=== PATIENT | female | born 1990 | race Caucasian/White ===

== ENCOUNTER 2024-04-09 06:05 | Day surgery (SDC) | payer OTHER ==
[~2024-04-09] VITALS: Ht 154.9 cm; Wt 98.5 kg
[~2024-04-09 06:05] MED LIST: DEXAMETHASONE SOD PHOS 4 MG/ML VIAL ONE; FAMOTIDINE 20 MG/ 2 ML VIAL ONE; HYDROCODON-ACE1 EAC8 PO; KETOROLAC TROMETHAMINE 30 MG/ML VIAL ONE; LACTATED RINGER'S 1,000 ML IV ONE; LACTATED RINGER'S 1,000 ML IV SCH; METOCLOPRAMIDE HCL 10 MG/2 ML SDV ONE; MIDAZOLAM HCL 2 MG/2 ML VIAL ONE; fentaNYL citrate 100 MCG/2 ML VIAL ONE; ondansetron HCL 4 MG/2 ML VIAL ONE; propofoL 200 MG/20 ML VIAL ONE
[2024-04-09] MEDS ORDERED: BUPIVACAINE HCL 0.25% 50 ML MDV ONE (06:36)
[2024-04-09] MEDS ORDERED: KETOROLAC TROMETHAMINE 30 MG/ML VIAL ONE (06:36)
[2024-04-09 06:40] VITALS: BP 112/75
[2024-04-09] MEDS ORDERED: LIDOCAINE HCL 1% 5 ML SDV INJ ONE (07:00)
[2024-04-09] MEDS ORDERED: TRANEXAMIC ACID 2,000 MG in SODIUM CHLORIDE 0.9% 100 ML IV SCH (07:00)
[2024-04-09] MEDS ORDERED: IBLOOD GLUCOSE TEST STRIP 1 EA TEST VI PRN ×2 (07:00→07:45)
[2024-04-09] MEDS ORDERED: CEFAZOLIN SODIUM 2 GM/20 ML SYR IV SCH (07:00)
--- NOTE | 2024-04-09 07:25 | NUR ---
VISITED DURING SPIRITUAL CARE ROUNDS. PT IN GOOD SPIRITS, SUPPORTED BY FAMILY MEMBER IN ROOM; STRONG RELATIONAL RESOURCES IN EVIDENCE. ASSISTANT PROFESSOR OF FORESTRY PROVIDED SUPPORTIVE PRESENCE, HOSPITALITY, PRAYER. PT AND ACTUARIAL SCIENCE PROFESSOR EXPRESSED GRATITUDE.
[2024-04-09] MEDS ORDERED: NALOXONE HCL 0.4 MG SYR IV PRN (07:45)
[2024-04-09] MEDS ORDERED: MORPHINE SULFATE 10 MG/ML VIAL IV PRN (07:45)
[2024-04-09] MEDS ORDERED: fentaNYL citrate 50 MCG/ML SDV IV PRN (07:45)
[2024-04-09] MEDS ORDERED: PROCHLORPERAZINE EDISYLATE 10 MG/2 ML VIAL IV PRN (07:45)
[2024-04-09] MEDS ORDERED: droPERidol 5 MG/2 ML VIAL IV PRN (07:45)
[2024-04-09] MEDS ORDERED: ondansetron HCL 4 MG/2 ML VIAL IV PRN (07:45)
[2024-04-09] MEDS ORDERED: METOCLOPRAMIDE HCL 10 MG/2 ML SDV IV PRN (07:45)
[2024-04-09] MEDS ORDERED: HYDROCODONE/ACETA 5/325 TAB PO PRN (08:45)
--- NOTE | 2024-04-09 09:38 | NUR ---
04/09/24 0938 Rena Cruz PT TO PACU SLEEPING ORAL AIRWAY IN PLACE O2 VIA MASK FOGGING NOTED IN MASK.
[2024-04-09] MEDS ORDERED: CELECOXIB200 MG PO (09:39)
[2024-04-09] MEDS ORDERED: HYDROCODON-ACE1 EA10 PO (09:39)
[2024-04-09 10:03] VITALS: BP 104/70
--- NOTE | 2024-04-09 10:17 | NUR ---
1000-PT BACK TO ROOM FROM PACU. RECEIVED REPORT FROM ROSANNA YOUNG. PT IS DROWSY. DENIES PAIN AND NAUSEA. PROVIDED PT WITH WATER AND CRACKERS. FAMILY AT BEDSIDE. NO OTHER NEEDS AT THIS TIME. CALL LIGHT WITHIN REACH.
[2024-04-09 10:57] VITALS: BP 105/69
--- NOTE | 2024-04-09 11:23 | NUR ---
1057-PT LAYING IN BED. DENIES PAIN AND NAUSEA. PT WOULD LIKE TO GO HOME. 1102-PT AMBULATES TO RESTROOM. PT STATES HEARING POPPING IN HER KNEE. STATES PAINFUL TO WALK. PT VOIDS. 1105-PT BACK TO ROOM. WOULD LIKE PAIN MEDICATION. 1111-PT RATES PAIN 5/10. PAIN MEDICATION GIVEN PER EMAR. FAMILY AT BEDSIDE. CALL LIGHT WITHIN REACH.
--- NOTE | 2024-04-09 11:42 | NUR ---
1135-WENT OVER DISCHARGE INSTRUCTIONS WITH PT. WENT OVER POSTOP MEDICATIONS. ALL QUESTIONS ANSWERED. PT STATES STILL PAINFUL BUT WANTS TO GO HOME AND LAYING ON HER COUCH. PT AMBULATES TO WHEELCHAIR AND RIDE PROVIDED TO FRONT OF HOSPITAL WHERE FAMILY WAS WAITING WITH THE CAR.
[2024-04-09] MEDS ORDERED: CELECOXIB 200 MG CAP PO SCH (17:00)
--- NOTE | 2024-04-13 06:52 | OR ---
[facility] [address], [place] [address] Signed DATE OF OPERATION: 04/09/2024 SURGEON: Joan Cruz MD PREOPERATIVE DIAGNOSIS: Medial meniscus tear, right knee. POSTOPERATIVE DIAGNOSIS: Medial meniscus tear, right knee. PROCEDURE PERFORMED: Right knee arthroscopy with partial meniscectomy. DIAMOND POLISHER: Rissa Kirkland PA-C. ANESTHESIA: General. BLOOD LOSS: Minimal. BRIEF HISTORY: Alisson is a 33-year-old female with progressive worsening of pain and instability in her knee. MRI was consistent with a posteromedial meniscus tear and she had failed nonoperative treatment. Risks and benefits of operative treatment were discussed with her and she elected to proceed. Once consent was obtained she was taken to the operating room. After adequate anesthesia she was placed on operating room table. All downside pressure points were well padded. The left leg was flexed, abducted and externally rotated on a well-padded leg rahman. The right was placed in well-padded proximal thigh leg rahman with no tourniquet. The leg was then prepped and draped in a standard sterile fashion. The portal sites were injected with 0.25% Marcaine with epinephrine. Standard inferolateral and superolateral portals were established and scope was introduced in the knee. ARTHROSCOPIC FINDINGS: Moderate synovitis was noted through the anterior and medial aspects of the knee. The patellofemoral joint was intact and aligned well. Lateral compartment was intact. The ACL and PCL were intact. The medial compartment showed no significant chondromalacia. There was a complex tear of the posteromedial meniscus. Electronically Signed By: JOAN CRUZ MD 04/13/24 0652 PATIENT NAME: ALISSON PEACOCK OPERATIVE REPORT DATE OF : [birth year] REPORT #: [id number] PHYSICIAN: JOAN CRUZ MD PCP: WALLY VALERA REPORT IS CONFIDENTIAL AND NOT TO BE RELEASED WITHOUT AUTHORIZATION [facility] [address], [place] [address] Signed DESCRIPTION OF OPERATION: Standard inferomedial portal was made after localization using a spinal needle. The straight and curved biters were used to trim the meniscus tear to stable rim and feathered out anteriorly. This was then smoothed using the shaver and all debris was evacuated. The scope was withdrawn from the knee and the portals were closed with 3-0 nylon. The knee was injected with 60 mg Toradol. The wounds were dressed with Adaptic, ABD, and Curly wrap. She tolerated the procedure well. All sponge, needle, and instrument counts were correct. Joan Cruz MD BA/VIVIENL /[id number] Copies: ~ Electronically Signed By: JOAN CRUZ MD 04/13/24 0652 PATIENT NAME: ALISSON PEACOCK OPERATIVE REPORT DATE OF : [birth year] REPORT #: [id number] PHYSICIAN: JOAN CRUZ MD PCP: WALLY VALERA REPORT IS CONFIDENTIAL AND NOT TO BE RELEASED WITHOUT AUTHORIZATION
== END 2024-04-09 11:35 | disposition home or self-care (01) ==
LOC: DS 06:05
PROVIDERS: ATTEND Specialist
PROC: 0SBC4ZZ Excision of Right Knee Joint, Percutaneous Endoscopic Approach (ICD-10-PCS; principal; 2024-04-09 09:00)
DX: S83.241A Other tear of medial meniscus, current injury, right knee, initial encounter (principal); X58.XXXA Exposure to other specified factors, initial encounter; Y93.9 Activity, unspecified; Y92.9 Unspecified place or not applicable; Y99.9 Unspecified external cause status
CPT/HCPCS: 01400; 36415; 80048; 84703; J0690; J1100; J1885; J2250; J2405; J2704; J2765; J3010; J7121